=== PATIENT | female | born 1965 ===

== ENCOUNTER 2019-07-07 10:20 | Emergency (ER) | payer SELFPAY ==
[2019-07-07 10:26] VITALS: BP 143/108; PULSE 106; RESP 18; TEMP 36.5; O2SAT 98; BMI 21.9
--- NOTE | 2019-07-07 11:00 | ED_ITS ---
Entered by Tamia Parra, acting as scribe for HPI - Psych General: Chief Complaint: Psychiatric Symptoms Stated Complaint: mhe/SI Time Seen by Provider: 07/07/19 11:00 Source: patient Mode of arrival: ambulatory Limitations: no limitations History of Present Illness: HPI Narrative: 53 yo Female presents to ED with complaint of suicidal ideation. Pt states that she planned to walk in front of a train this morning but there were no trains this morning. Pt states that she is feeling this way because she is supposed to go to intermediate this afternoon. Pt states she wants to for sure. Associated symptoms: Reports depression and suicidal ideation Review of Systems General: Reports: other (negative unless marked) Const: Denies: fever, chills, body aches, fatigue, malaise or diaphoresis Eyes: Denies: change in vision or blurry vision ENMT: Denies: throat pain, painful swallowing, hoarseness, ear pain, ear discharge, Change in hearing or nasal discharge Card: Denies: chest pain, palpitations, irregular heart rhythm, syncope, pre- syncope, shortness of breath on exertion or shortness of breath when lying down Resp: Denies: shortness of breath, productive cough, non-productive cough, wheezing, coughing up blood or chest congestion GI: Denies: abdominal pain, nausea, vomiting, vomiting blood, coffee grounds in vomit, diarrhea, constipation, cramping, blood in stool or black tarry stool : Denies: flank pain, painful urination, urinary frequency, urinary urgency, decreased urine ouput, urinary incontinence or blood in urine Musc: Denies: neck pain, back pain, extremity pain, extremity swelling, joint pain, joint swelling, joint warmth or joint stiffness Skin/Breast: Denies: rash, skin tenderness or yellow skin Neuro: Denies: headache, numbness in extremities, weakness in extremities, changes in sensation, lack of coordination, difficulty walking, dizziness, vertigo or confusion Psych: Reports: depression and suicidal ideation Endo: Denies: excessive thirst, tired all the time, cold intolerance, excessive sweating, flushing or hot flashes Christopher/Lymph: Denies: easy bruising, easy bleeding, petechiae or enlarged lymph nodes All/Imm: Denies: hives, throat swelling, tongue swelling, facial swelling or acute wheezing PFSH ED PFSH: Statuses (acute, chronic, etc) shown below reflect problem list status as previously entered and may not be historically accurate Social History Smoking and tobacco status: current every day smoker Physical Exam Const: COMMON NORMALS: no apparent distress, oriented x3, no limitations, healthy appearing and well nourished EXAM LIMITATIONS: no altered mental status GENERAL APPEARANCE: cooperative, well kempt and well developed O RIENTATION/CONSCIOUSNESS: Yes awake HENMT: COMMON NORMALS: normocephalic, head/scalp atraumatic, hearing grossly normal bilaterally, external ears normal, EAC's normal, external nose normal and moist oral mucous membranes HEAD & SCALP: normal to inspection, normocephalic and atraumatic FACE & SINUS: normal facial exam and face symmetric NOSE: external nose normal and nares normal EXTERNAL EAR: Yes external ears normal EXTERNAL AUDITORY CANAL: EAC's normal MOUTH: oral and palatal mucosa normal and tongue normal Eye: COMMON NORMALS: PERRL, EOMs intact bilaterally, conjunctivae normal and no scleral icterus GENERAL EYE: normal appearance of both eyes and normal light reflex CONJUNCTIVA: Yes conjunctivae normal SCLERA: sclerae normal CORNEA: Yes corneas normal PUPIL: Yes PERRL DIRECT OPHTHALMOSCOPY: Yes n ormal light reflex Neck/C-Spine: COMMON NORMALS: full ROM, no lymphadenopathy, supple, no meningeal signs and no JVD GENERAL: Yes normal visual inspection and Yes trachea midline CERVICAL SPINE: Yes cervical ROM normal Chest: COMMONS NORMALS: inspection of chest normal and palpation of chest normal Resp: COMMON NORMALS: normal respiratory effort, no retractions, no use of accessory muscles and clear to auscultation bilaterally EFFORT & INSPECTION: Yes able to speak in complete sentences AUSCULTATION: clear to auscultation bilaterally Cardio: COMMON NORMALS: no JVD, regular rate, regular rhythm, S1 normal heart sound, S2 normal heart sound, no gallops, no clicks, no murmurs and no rub JUGULAR VENOUS DISTENTION: no JVD RATE: regular rate RHYTHM: regular rhythm HEART SOUNDS: S1 normal and S2 normal GI: COMMON NORMALS: soft to palpation, non-tender, no hepatosplenomegaly and no masses INSPECTION: Yes normal to inspection PALPATION: Yes soft and Yes no hepatosplenomegaly : COMMON NORMALS: Yes no CVA tenderness BLADDER/KIDNEY EXAM: Yes no CVA tenderness Back/Pelvis: COMMON NORMALS: no CVA tenderness, thoracic and lumbar spine normal to inspection, no thoracic nor lumbar tenderness and thoraco-lumbar ROM normal Extremity: COMMON NORMALS: normal to inspection, full ROM, normal capillary refill, no joint enlargement, no clubbing, cyanosis or edema and no calf tenderness Neuro: COMMON NORMALS: oriented x3, CN's II-XII intact bilaterally, moves all extremities, no focal motor deficits and no sensory deficits noted MENINGEAL SIGNS: Yes no meningeal signs Psych: COMMON NORMALS: mental status grossly normal, thought process normal, cooperative, affect normal, speech normal and activity/motor behavior normal APPEARANCE: Yes well kempt SPEECH: Yes normal speech THOUGHT PROCESS: normal thought process Skin: COMMON NORMALS: no rashes or lesions noted, skin turgor normal, no jaundice, no petechiae and no mottling GENERAL SKIN EXAM: no rashes or lesions noted and turgor normal MDM - Psych MDM Narrative: Medical decision making narrative: 1533 -the patient has been seen and evaluated by Dr. Walton. Please see his note for his history, physical exam and medical decision-making notes. He relates to me that the patient is just anxious about going to intermediate is not truly suicidal. The patient confirms this. She is ready to have the line assigner contacted to take her onto intermediate. We will give the patient a Lexapro and trazodone as requested by Dr. Walton. Further care will be managed by the intermediate physician. Lab Data: Labs: Lab Results 07/07/19 07/07/19 07/07/19 Range/Units 10:57 10:57 11:18 WBC 7.1 (4.0-10.0) 10^3/ uL RBC 4.57 (4.1-5.3) 10^6/u L Hgb 13.4 (11.5-15.3) g/dL Hct 41.0 (37.0-47.0) % MCV 89.7 (81-99) fL MCH 29.3 (28.0-34.0) pg MCHC 32.7 (30.0-36.0) g/dL RDW 13.8 (12.1-15.1) % Plt Count 488 H (130-400) 10^3/c mm MPV 9.4 (7.4-10.4) fL Neut % (Auto) 67.2 % Lymph % (Auto) 25.2 % [place] % (Auto) 6.1 % Eos % (Auto) 0.6 % Baso % (Auto) 0.6 % Neut # (Auto) 4.8 (1.8-7.7) 10^3/u L Lymph # (Auto) 1.8 (0.8-4.8) 10^3/u L [place] # (Auto) 0.4 (0.2-0.9) 10^3/u L Eos # (Auto) 0.0 (0.0-0.8) 10^3/u L Baso # (Auto) 0.0 (0.0-0.1) 10^3/u L Nucleated RBC % (a uto) 0 % Nucleated RBCs # 0.0 /100WBC Sodium (136-145) mmol/L Potassium (3.5-5.1) mmol/L Chloride (98-107) mmol/L Carbon Dioxide (22-29) mmol/L Anion Gap (5-19) BUN (6-20) mg/dL Creatinine (0.5-0.9) mg/dL GFR Calculation (90-130) mL/min Glucose (74-109) mg/dL Calcium (8.6-10.0) mg/Dl Magnesium (1.7-2.3) mg/dL Total Bilirubin (0.15-1.2) mg/dL AST (0-32) U/L ALT (0-33) U/L Alkaline Phosphata se (35-105) IU/L Total Protein (6.6-8.7) g/dL Albumin (3.5-5.2) g/dL Globulin (1.3-4.6) g/dL TSH (0.27-4.20) uIU/ mL HCG, Qual Negative (Negative) Salicylates (3-10) mg/dL Urine Opiates Scre en Negative (Negative) ng/mL Acetaminophen (10-30) ug/mL Ur Barbiturates Sc reen Negative (Negative) ng/mL Ur Phencyclidine S crn Negative (Negative) ng/mL Ur Amphetamines Sc reen Positive H (Negative) ng/mL U Benzodiazepines Scrn Negative (Negative) ng/mL Urine Cocaine Scre en Negative (Negative) ng/mL U Marijuana (THC) Screen Positive H (Negative) ng/mL Ethyl Alcohol (0-10) mg/dL 07/07/19 07/07/19 Range/Units 11:18 11:18 WBC (4.0-10.0) 10^3/ uL RBC (4.1-5.3) 10^6/u L Hgb (11.5-15.3) g/dL Hct (37.0-47.0) % MCV (81-99) fL MCH (28.0-34.0) pg MCHC (30.0-36.0) g/dL RDW (12.1-15.1) % Plt Count (130-400) 10^3/c mm MPV (7.4-10.4) fL Neut % (Auto) % Lymph % (Auto) % [place] % (Auto) % Eos % (Auto) % Baso % (Auto) % Neut # (Auto) (1.8-7.7) 10^3/u L Lymph # (Auto) (0.8-4.8) 10^3/u L [place] # (Auto) (0.2-0.9) 10^3/u L Eos # (Auto) (0.0-0.8) 10^3/u L Baso # (Auto) (0.0-0.1) 10^3/u L Nucleated RBC % (a uto) % Nucleated RBCs # /100WBC Sodium 138 (136-145) mmol/L Potassium 3.1 L (3.5-5.1) mmol/L Chloride 101 (98-107) mmol/L Carbon Dioxide 23 (22-29) mmol/L Anion Gap 17.1 (5-19) BUN 8 (6-20) mg/dL Creatinine 0.7 (0.5-0.9) mg/dL GFR Calculation 87.2 L (90-130) mL/min Glucose 137 H (74-109) mg/dL Calcium 9.9 (8.6-10.0) mg/Dl Magnesium 2.4 H (1.7-2.3) mg/dL Total Bilirubin 0.2 (0.15-1.2) mg/dL AST 11 (0-32) U/L ALT 8 (0-33) U/L Alkaline Phosphata se 83 (35-105) IU/L Total Protein 7.4 (6.6-8.7) g/dL Albumin 4.4 (3.5-5.2) g/dL Globulin 3.0 (1.3-4.6) g/dL TSH 2.74 (0.27-4.20) uIU/ mL HCG, Qual (Negative) Salicylates < 0.3 L (3-10) mg/dL Urine Opiates Scre en (Negative) ng/mL Acetaminophen < 5.0 L (10-30) ug/mL Ur Barbiturates Sc reen (Negative) ng/mL Ur Phencyclidine S crn (Negative) ng/mL Ur Amphetamines Sc reen (Negative) ng/mL U Benzodiazepines Scrn (Negative) ng/mL Urine Cocaine Scre en (Negative) ng/mL U Marijuana (THC) Screen (Negative) ng/mL Ethyl Alcohol < 10 (0-10) mg/dL EKG Data^: EKG 1: Attestation: I personally reviewed and interpreted this EKG as follows: ( EKG performed and read at 1124 -normal sinus rhythm at 81 beats a minute, normal intervals, nonspecific ST-T wave changes, normal QTC) Discharge Plan Discharge Patient Disposition: Home, Self-Care Clinical Impression: Depression Condition: Stable Prescriptions: New escitalopram oxalate [Lexapro] 10 mg tablet 10 mg PO DAILY Qty: 30 RF: 0 No Action Multiple Vitamins Tablet 1 tab PO DAILY RF: 0 Discharge Orders: Discharge Order (Routine); Ordered 07/07/19 Ordered By: Denia England Referrals: Bronson Walton MD [Physician] - 4-7 days Discharge Diet: Usual diet Discharge Activity: Resume usual activity Patient Instructions: Depression (ED), Suicide Prevention for Adults (ED), Polysubstance Abuse (ED) Activity Restrictions/Additional Instructions: Please return to the ER immediately for any of the signs or symptoms listed on your discharge instruction sheets, worsening/changing of your symptoms, you are not getting better as quickly as expected, or for ANY other cause or concerns. Ask for help by the intermediate physician or to return to the ER if you develop thoughts of wanting to hurt yourself or kill yourself. Coding Level of Care Code ED Staff Air Defense Officer for Chg Fwd Exam Problem Focused The documentation recorded by the Aida kennedy Carmen, accurately reflects the service I personally performed and the decisions made by me, Denia England
--- NOTE | 2019-07-07 11:11 | ECG_ITS ---
Measurements Intervals [place] Rate: 81 P: 71 AK: 127 QRS: 43 QRSD: 81 T: 58 QT: 387 QTc: 452 SINUS RHYTHM POSSIBLE RIGHT VENTRICULAR CONDUCTION DELAY [RSR (QR) IN V1/V2] No previous ECG available for comparison Electronically Signed On 07-07-2019 17:50:44 MOTOR HOME ELECTRICAL FOREMAN by Indu Conte M.D. [id number]
[2019-07-07 11:26] LABS: Basophils % 0.6 %; Eosinophils % 0.6 %; Hemoglobin 13.4 g/dL (11.5-15.3); Lymphocytes # 1.8 10^3/uL (0.8-4.8); Lymphocytes % 25.2 %; Mean Corpuscular HGB Conc 32.7 g/dL (30.0-36.0); Mean Corpuscular Hemoglobin 29.3 pg (28.0-34.0); Mean Corpuscular Volume 89.7 fL (81-99); Mean Platelet Volume 9.4 fL (7.4-10.4); Monocytes # 0.4 10^3/uL (0.2-0.9); Monocytes % 6.1 %; Neutrophils # 4.8 10^3/uL (1.8-7.7); Neutrophils % 67.2 %; Nucleated Red Blood Cells % 0 %; Platelet Count 488 10^3/cmm (130-400); Red Blood Count 4.57 10^6/uL (4.1-5.3); Red Cell Distribution Width 13.8 % (12.1-15.1); White Blood Count 7.1 10^3/uL (4.0-10.0)
[2019-07-07 11:38] LABS: HCG Qualitative Urine. Negative (Negative)
[2019-07-07 11:50] LABS: Alanine Aminotransferase 8 U/L (0-33); Albumin Level 4.4 g/dL (3.5-5.2); Alkaline Phosphatase 83 IU/L (35-105); Anion Gap 17.1 (5-19); Aspartate Amino Transferase 11 U/L (0-32); Blood Urea Nitrogen 8 mg/dL (6-20); Calcium 9.9 mg/Dl (8.6-10.0); Carbon Dioxide 23 mmol/L (22-29); Chloride 101 mmol/L (98-107); Glomerular Filtration Rate 87.2 mL/min (90-130); Glucose 137 mg/dL (74-109); Potassium 3.1 mmol/L (3.5-5.1); Sodium 138 mmol/L (136-145); Thyroid Stimulating Hormone 2.74 uIU/mL (0.27-4.20); Total Bilirubin 0.2 mg/dL (0.15-1.2); Total Protein 7.4 g/dL (6.6-8.7)
[2019-07-07 11:55] LABS: Acetaminophen < 5.0 ug/mL (10-30); Alcohol Level < 10 mg/dL (0-10); Salicylate < 0.3 mg/dL (3-10)
[2019-07-07 12:08] LABS: Amphetamines Screen Urine Positive (Negative); Barbiturates Screen Urine Negative (Negative); Benzodiazepines Screen Urine Negative (Negative); Cocaine Screen Urine Negative (Negative); Opiate Screen Urine Negative (Negative); PCP Screen Urine Negative (Negative); THC Screen Urine Positive (Negative)
[2019-07-07 12:25] LABS: Magnesium 2.4 mg/dL (1.7-2.3)
--- NOTE | 2019-07-07 16:00 | PM.PSYCN ---
Providers/Reason for Consult Consulting Physican/Specialty*: Bornson Walton MD. Psychiatry. Reason for Consult*: Evaluation for lethality and treatment Requesting Physcian: DR Hayes Psych Consult HPI History of Present Illness Hannah Centeno is a 53 year old female who presents today going through a significant crisis in her life. 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 She reports that some circumstances of being kind to people led to her putting herself in a precarious position and she ended up not being able to do the profession that she loves some months. She reports that she took a person in who is still actively struggling with their addiction which she acknowledges was a poor choice and that that person engaged in an activity that she got caught up in. She reports that even though she does not have a significant legal history and that her bioinformatics software engineer suggested that there was little to no chance that she would get anything other than probation, she ended up getting a significant sentence and was supposed to turn herself into the [facility] der[facility] operator's department today. She reports that she has not been sleeping and has been anxious and just feeling like she wanted to . However as we have spoken she has been able to gather herself and her thoughts and she understands that she needs to face the situation fair or otherwise. We discussed the risks benefits and alternatives of starting an antidepressant/antianxiety agent which was discussed with her primary doctor on this case, and she understood and agreed to proceed with a trial of Lexapro. Psychiatric history: She denies significant psychiatric care outside of some medication management and therapy in her life. Substance abuse history: As above. She reports that she has had issues with methamphetamines and cannabis. She reports that prior to the situation of having to turn herself in to prison she had actually been doing really well with her addiction. We discussed developmental, family and psychosocial history and none are significantly contributory to assessment, treatment and disposition in this case. PFSH NPU PFSH: Statuses (acute, chronic, etc) shown below reflect problem list status as previously entered and may not be historically accurate Social History Smoking and tobacco status: current every day smoker Mental Status Exam MSE Comments: This is a slender older appearing white female with adequate dress, grooming and eye contact. No abnormal movements except for psychomotor retardation. Cooperative with exam in mild to moderate distress. Speech was decreased rate and volume. Mood described as depressed affect congruent and tearful. Thought process organized. Thought content: Patient denied any homicidal ideations, but did endorse that she was having suicidal thoughts as she contemplated having to go to prison, there were no delusions reported or noted, she denied any auditory or visual hallucinations. Attention and concentration were intact and memory appeared reliable but none were formally tested. She is alert and oriented x3. Insight and judgment are fair. Vitals/I&O/Wt Last Vital Signs Temp 97.7 F 07/07/19 10:26 Pulse 106 H 07/07/19 10:26 Resp 18 07/07/19 10:26 BP 143/108 07/07/19 10:26 Pulse Ox 98 07/07/19 10:26 Weight last 48 hrs Weight 54.431 kg A&P Assessment and plan (1) Adjustment disorder with mixed disturbance of emotions and conduct: This is a 53-year-old white female with a long history of depression and recent addiction who presents with a significant life stressor of having to go to prison today which is led to her having a bit of a breakdown. 1. Initiate Lexapro 10 mg p.o. every morning. 2. Spend time with a brief intervention to help her the situation cognitively reframe and get her mind around the inevitability of her circumstance and her options to manage it. 3. Encouraged her to utilize the resources in intermediate to manage her emotional needs and challenges. 4. There is no need or benefit from an inpatient hospitalization at this time. 5. [facility]charged to the [facility] Case discussed with ER doctor on the case. Status: Acute Code(s): F43.25 - Adjustment disorder with mixed disturbance of emotions and conduct (2) Depressive disorder: Status: Acute Code(s): F32.9 - Major depressive disorder, single episode, unspecified Attestations U Medical Necessity Statement*: N/A. Deferred to Dr. Hayes, however inpatient hospitalization is not medically necessary nor the clinically appropriate intervention at this time. Recommendations can be seen above. Coding Level of Care Code Acute Fish Hatchery Supervisor for [facility]eleno Diagnoses Adjustment disorder with mixed disturbance of emotions and conduct F43.25 Depressive disorder F32.9
[2019-07-07 16:16] VITALS: BP 152/83; PULSE 80; RESP 20; TEMP 36.6; O2SAT 96
== END 2019-07-07 16:27 | disposition home or self-care (01) ==
PROVIDERS: Emergency Provider Emergency Medicine
DX: F32.9 Major depressive disorder, single episode, unspecified (principal); F17.210 Nicotine dependence, cigarettes, uncomplicated
CPT/HCPCS: 36415; 80053; 80307; 81025; 83735; 84443; 85025; 93005; 99284; A9270